=== PATIENT | female | born 1940 | race Caucasian/White ===

== ENCOUNTER 2016-08-08 06:32 | Day surgery (SDC) | payer MEDICARE, OTHER ==
--- NOTE | ~2016-08-08 | EGD ---
EGD REPORT [facility] [address] [address] NAME: DEBRA SCHAEFER : [birth year] STATUS : [place] [facility] [place] PAT#: [id number] AGE: 75 ADM/REG DATE : 08/08/16 MR#: [id number] REPORT SERV DATE: 08/08/16 DICTATED BY: MELCHOR BURTON DATE: 08/08/16 REPORT STATUS : Draft TRANSCRIBED BY: [facility] DATE: 08/08/16 Endoscopy Center Patient Name: Debra Schaefer Date of : 1940 Attending MD: MELCHOR BURTON MD Procedure Date No Time: 08/08/2016 Procedure: Upper GI endoscopy Indications: Gastro-esophageal reflux disease, Heme positive stool, Nausea Referring MD: BERTIN BRADY MD Medicines: Propofol per Anesthesia Complications: No immediate complications. Estimated blood loss: None. Procedure: Pre-Anesthesia Assessment: - After reviewing the risks and benefits, the patient was deemed in satisfactory condition to undergo the procedure. - Prior to the procedure, a History and Physical was performed, and patient medications and allergies were reviewed. The patient's tolerance of previous anesthesia was also reviewed. The risks and benefits of the procedure and the sedation options and risks were discussed with the patient. All questions were answered, and informed consent was obtained. Prior Anticoagulants: The patient has taken no previous anticoagulant or antiplatelet agents. ASA Grade Assessment: III - A patient with severe systemic disease. After reviewing the risks and benefits, the patient was deemed in satisfactory condition to undergo the procedure. After obtaining informed consent, the endoscope was passed under direct vision. Throughout the procedure, the patient's blood pressure, pulse, and oxygen saturations were monitored continuously. The GIF [id number] was introduced through the mouth, and advanced to the third part of duodenum. The upper GI endoscopy was accomplished without difficulty. The patient tolerated the procedure well. Findings: The examined esophagus was normal. The entire examined stomach and gastroesophageal junction (on retroflexion) were normal. Localized nodular mucosa was found in the duodenal bulb. Biopsies were taken with a cold forceps for histology. Estimated blood loss: none. Impression: - Normal esophagus. EGD REPORT [address] [address] NAME: DEBRA SCHAEFER : [birth year] [place]US : [place] [facility] [place] PAT#: [id number] AGE: 75 ADM/REG DATE : 08/08/16 MR#: [id number] REPORT SERV DATE: 08/08/16 DICTATED BY: MELCHOR BURTON DATE: 08/08/16 REPORT STATUS : Draft TRANSCRIBED BY: [employer] DATE: 08/08/16 - Normal stomach and gastroesophageal junction. - Nodular mucosa in the duodenal bulb. Biopsied. - Non-erosive esophageal reflux (NERD) disease present. - Chronic nausea on opioid medications. Recommendation: - Discharge patient to home (ambulatory). - Return to previous diet. - Continue present medications. - Discontinue Protonix (pantoprazole) 40 mg daily and try Zantac (ranitidine) over the counter at 150 mg twice daily for reflux. - Await pathology results. - Perform a colonoscopy today. - Patient has a contact number available for emergencies. The signs and symptoms of potential delayed complications were discussed with the patient. Return to normal activities tomorrow. Written discharge instructions were provided to the patient. Procedure Code(s): --- Professional --- 24675, Esophagogastroduodenoscopy, flexible, transoral; with biopsy, single or multiple Diagnosis Code(s): --- Professional --- K31.9, Disease of stomach and duodenum, unspecified K21.9, Gastro-esophageal reflux disease without esophagitis R19.5, Other fecal abnormalities R11.0, Nausea CPT copyright 2013 [employer]. All rights reserved. The codes documented in this report are preliminary and upon surgical coder review may be revised to meet current compliance requirements. MELCHOR BURTON MD 08/08/2016 8:20 AM This report has been signed electronically. Number of Addenda: 0 Note Initiated On: 08/08/2016 7:59 AM Scope Withdrawal Time 0 hours 0 minutes 0 seconds [id number] [id number]
--- NOTE | ~2016-08-08 | EGD ---
EGD REPORT [facility] [address] [id number] NAME: DEBRA SCHAEFER : [birth year] STATUS : REG [facility]#: [id number] AGE: 75 ADM/REG DATE : 08/08/16 MR#: [id number] REPORT SERV DATE: 08/08/16 DICTATED BY: MELCHOR BURTON DATE: 08/08/16 REPORT STATUS : Draft TRANSCRIBED BY: [facility] DATE: 08/08/16 Endoscopy Center Patient Name: Debra Schaefer Date of : 1940 Attending MD: MELCHOR BURTON MD Procedure Date No Time: 08/08/2016 Procedure: Colonoscopy Indications: Heme positive stool, Follow-up for history of adenomatous polyps in the colon Referring MD: BERTIN BRADY MD Medicines: Propofol per Anesthesia Complications: No immediate complications. Estimated blood loss: None. Procedure: Pre-Anesthesia Assessment: - After reviewing the risks and benefits, the patient was deemed in satisfactory condition to undergo the procedure. - Prior to the procedure, a History and Physical was performed, and patient medications and allergies were reviewed. The patient's tolerance of previous anesthesia was also reviewed. The risks and benefits of the procedure and the sedation options and risks were discussed with the patient. All questions were answered, and informed consent was obtained. Prior Anticoagulants: The patient has taken no previous anticoagulant or antiplatelet agents. ASA Grade Assessment: III - A patient with severe systemic disease. After reviewing the risks and benefits, the patient was deemed in satisfactory condition to undergo the procedure. After I obtained informed consent, the scope was passed under direct vision. Throughout the procedure, the patient's blood pressure, pulse, and oxygen saturations were monitored continuously. The CF [id number] was introduced through the anus and advanced to the hepatic flexure. The colonoscopy was performed with difficulty due to poor bowel prep with stool present, a tortuous colon and the patient's body habitus. Successful completion of the procedure was aided by straightening and shortening the scope to obtain bowel loop reduction, applying abdominal pressure and lavage. The patient tolerated the procedure well. The quality of the bowel preparation was poor. The bowel preparation used was polyethylene glycol (PEG) although the patient only consumed a little over half of the prep. Findings: EGD REPORT [place] [id number] [facility] [place]. [address] NAME: DEBRA SCHAEFER : [birth year] STATUS : REG [facility] [place] PAT#: [id number] AGE: 75 ADM/REG DATE : 08/08/16 MR#: [id number] REPORT SERV DATE: 08/08/16 DICTATED BY: MELCHOR BURTON DATE: 08/08/16 REPORT STATUS : Draft TRANSCRIBED BY: [facility] DATE: 08/08/16 The perianal exam was abnormal. Findings include internal hemorrhoids that do not return to the anal canal, thus continuously prolapsed (Grade IV). There was also marked rectal mucosal prolapse. Multiple small and large-mouthed diverticula were found in the entire colon. The exam was otherwise without abnormality although the scope could not be advanced proximal to the hepatic flexure. Impression: - Preparation of the colon was poor. - Internal hemorrhoids that do not return to the anal canal, thus continuously prolapsed (Grade IV) found on perianal exam. - Rectal mucosal prolapse. - Rectocele. - Severe diverticulosis in the entire examined colon. - The examination was otherwise normal but was incomplete. - Chronic constipation/Opioid-induced constipation. Recommendation: - Discharge patient to home (ambulatory). - Clear liquid diet today then nothing by mouth after midnight. Resume regular diet after barium enema. - Continue present medications. - Take one bottle of magnesium citrate today. - Air-contrast barium enema tomorrow to complete colon evaluation. - Repeat colonoscopy will not be performed due to advanced age. - Return to GI clinic PRN. - Patient has a contact number available for emergencies. The signs and symptoms of potential delayed complications were discussed with the patient. Return to normal activities tomorrow. Written discharge instructions were provided to the patient. Procedure Code(s): --- Professional --- 69955, 52, Colonoscopy, flexible, proximal to splenic flexure; diagnostic, with or without collection of specimen(s) by brushing or washing, with or without colon decompression (separate procedure) Diagnosis Code(s): --- Professional --- K64.3, Fourth degree hemorrhoids K57.30, Diverticulosis of large intestine without perforation or abscess without bleeding R19.5, Other fecal abnormalities Z86.010, Personal history of colonic polyps EGD REPORT [facility] [address] [facility] [place]. [address] NAME: DEBRA SCHAEFER : [birth year] STATUS : [facility]#: [id number] AGE: 75 ADM/REG DATE : 08/08/16 MR#: [id number] REPORT SERV DATE: 08/08/16 DICTATED BY: MELCHOR BURTON. DATE: 08/08/16 REPORT STATUS : Draft TRANSCRIBED BY: [email or web address] DATE: 08/08/16 CPT copyright 2013 [employer]. All rights reserved. The codes documented in this report are preliminary and upon insurance coder review may be revised to meet current compliance requirements. MELCHOR BURTON MD 08/08/2016 8:54 AM This report has been signed electronically. Number of Addenda: 0 Note Initiated On: 08/08/2016 7:54 AM Scope Withdrawal Time 0 hours 0 minutes 0 seconds [id number] [facility] [place] [address]
[~2016-08-08 06:32] MED LIST: ACET500CAP PO; ACTOS30 PO; AMOX250 PO; ASAB PO; ASABAYER PO; BL CHROMIUM200 MCG PO; CENTRUM PO; CHROMIUM PIC500 MCG PO; CRANBERRY500 MG PO; CYMBALTA60 PO; ENDOCET1 TAB PO; FLOMAX4 PO; GABITRIL4 MG PO; GENPRIL200 MG PO; GLUCOPHAGE1000 MG PO; GLUCOTROL5 PO; GLUCXL5 PO; JANUVIA100 MG PO; LIPITOR20 PO; LIPITOR40 PO; LOTE10 PO; LOTRISONE CREAM15 GM TOP; LUNESTA3 MG PO; MACRO50B PO; MACRODANTIN 10100 MG PO; MOBIC7.5 PO; MULTIVITAMI1 PO; NEUR300 PO; NYSTOP100000 MG TOP; PR25 PO; PROLOP100 PO; PROTONIX PO; T PO; TOPXL25 PO; TRICOR145 PO; TYLENOL ARTH650 MG PO; VITAMIN C100 MG PO; VITAMIN C500 M3 PO; ZETIA PO
== END 2016-08-08 23:59 | disposition home or self-care (01) ==
LOC: DMU 06:32
PROVIDERS: Internal Medicine Gastroenterology
PROC: 0DJD8ZZ Inspection of Lower Intestinal Tract, Via Natural or Artificial Opening Endoscopic (ICD-10-PCS; principal; 2016-08-08 08:00)
PROC: 0DB98ZX Excision of Duodenum, Via Natural or Artificial Opening Endoscopic, Diagnostic (ICD-10-PCS; 2016-08-08 08:00)
DX: K31.89 Other diseases of stomach and duodenum (principal); K64.3 Fourth degree hemorrhoids; K57.30 Diverticulosis of large intestine without perforation or abscess without bleeding; K21.9 Gastro-esophageal reflux disease without esophagitis; I10 Essential (primary) hypertension; I25.10 Atherosclerotic heart disease of native coronary artery without angina pectoris; E78.00 Pure hypercholesterolemia, unspecified; E11.9 Type 2 diabetes mellitus without complications; H91.92 Unspecified hearing loss, left ear; Z86.010 Personal history of colon polyps; Z95.1 Presence of aortocoronary bypass graft; Z88.1 Allergy status to other antibiotic agents; Z88.8 Allergy status to other drugs, medicaments and biological substances; Z88.2 Allergy status to sulfonamides; Z88.5 Allergy status to narcotic agent; Z88.6 Allergy status to analgesic agent; Z96.653 Presence of artificial knee joint, bilateral; Z90.89 Acquired absence of other organs; Z90.49 Acquired absence of other specified parts of digestive tract; Z98.1 Arthrodesis status; Z79.84 Long term (current) use of oral hypoglycemic drugs; Z79.82 Long term (current) use of aspirin; Z79.899 Other long term (current) drug therapy; Z98.890 Other specified postprocedural states
CPT/HCPCS: 82962; 88305; A9270-GY